=== PATIENT | female | born 1975 | race Caucasian/White ===

== ENCOUNTER 2023-08-22 06:00 | Outpatient (RCR) | payer BC, SELFPAY | END 2023-09-19 23:59 | disposition home or self-care (01) | LOC: MPT 06:00 | PROVIDERS: Visit Provider Family Medicine | DX: M94.261 Chondromalacia, right knee (principal); S29.019D Strain of muscle and tendon of unspecified wall of thorax, subsequent encounter; X58.XXXD Exposure to other specified factors, subsequent encounter | CPT/HCPCS: 97162 ==